=== PATIENT | male | born 1950 | race Caucasian/White ===

== ENCOUNTER 2021-08-22 12:00 | Inpatient (IN) | payer OTHER ==
[~2021-08-22] VITALS: Ht 188 cm; Wt 65.8 kg
[~2021-08-22 12:00] MED LIST: ALBUTEROL1.25 MG/3 INH; CEFUROXIME500 MG PO; CLARITIN 10MG T10 MG PO; DOXYCYCLINE HY100 M2 PO; DULERA 200 MCG8.8 GM INH; GLUCOPHAGE 500500 MG PO; GOLYTELY 40004000 ML PO; IPRAT-ALBUT 0.5-3 ML INH; MEDROL4 MG PO; OMNICEF 300 MG300 MG PO; SPIRIVA RESPIMAT4 GM INH; SYMBICORT 160-1 INHA INH; VENTOLIN HFA 66.7 GM INH
[2021-08-22 13:11] LABS: HEMOGLOBIN 14.8 gm/dl (14.0-17.5); RED BLOOD COUNT 4.53 M/UL (4.20-5.50)
[2021-08-22 13:27] LABS: BUN/CREATININE RATIO 21 (0-10)
[2021-08-22] MEDS ORDERED: SYMBICORT 80-10.2 GM INH (14:51)
[2021-08-23 05:29] LABS: HEMOGLOBIN 13.4 gm/dl (14.0-17.5); RED BLOOD COUNT 4.19 M/UL (4.20-5.50)
[2021-08-23 05:31] LABS: WHITE BLOOD COUNT 13.8 K/UL (4.5-11.0)
[2021-08-23 05:44] LABS: BUN/CREATININE RATIO 37 (0-10)
[2021-08-23] MEDS ORDERED: GLUCOPHAGE 500500 MG PO (10:47)
[2021-08-23] MEDS ORDERED: LEVOFLOXACIN500 MG PO (10:47)
[2021-08-23] MEDS ORDERED: MEDROL4 MG PO (10:47)
== END 2021-08-23 12:32 | disposition home or self-care (01) | DRG 871 ==
LOC: ER1 12:00 → CDU 13:36 → CCU 23:44
PROVIDERS: Emergency Medicine; ADMIT Internal Medicine
DX: A41.9 Sepsis, unspecified organism (principal); J18.9 Pneumonia, unspecified organism; J96.01 Acute respiratory failure with hypoxia; J44.0 Chronic obstructive pulmonary disease with (acute) lower respiratory infection; J44.1 Chronic obstructive pulmonary disease with (acute) exacerbation; Z20.822 Contact with and (suspected) exposure to COVID-19; R65.20 Severe sepsis without septic shock; I10 Essential (primary) hypertension; E11.9 Type 2 diabetes mellitus without complications; R53.81 Other malaise; Z79.899 Other long term (current) drug therapy; Z87.891 Personal history of nicotine dependence
CPT/HCPCS: 0240U; 36600; 71045; 71250; 80053; 82550; 82553; 82803; 82962; 83036; 83540; 83550; 83735; 83880; 85025; 85027; 85652; 86140; 87040; 93005; 94640; 94664; 94760; 96365; 96372; 96375; 99285; J0456; J0696; J1650; J2185; J2920; J7030

== ENCOUNTER 2021-11-24 04:58 | Inpatient (IN) | payer MEDICARE ==
[~2021-11-24] VITALS: Ht 188 cm; Wt 67.6 kg
[~2021-11-24 04:58] MED LIST changes: +LEVOFLOXACIN500 MG PO; +SYMBICORT 80-10.2 GM INH
[2021-11-24 05:19] LABS: HEMOGLOBIN 14.4 gm/dl (14.0-17.5); RED BLOOD COUNT 4.53 M/UL (4.20-5.50); WHITE BLOOD COUNT 16.4 K/UL (4.5-11.0)
[2021-11-24 05:48] LABS: BUN/CREATININE RATIO 20 (0-10)
[2021-11-24] MEDS ORDERED: METFORMIN HCL500 MG PO (10:14)
[2021-11-24] MEDS ORDERED: PROAIR HFA8.5 GM INH (10:15)
[2021-11-24] MEDS ORDERED: ASPIRIN EC81 MG PO (10:16)
[2021-11-24] MEDS ORDERED: LIPITOR20 MG PO (10:17)
[2021-11-24] MEDS ORDERED: LEXAPRO10 MG PO (10:17)
[2021-11-24] MEDS ORDERED: LOPRESSOR 25 MG25 MG PO (10:18)
[2021-11-24] MEDS ORDERED: TRELEGY ELLIPT1 EACH INH (10:19)
[2021-11-25 03:40] LABS: HEMOGLOBIN 13.1 gm/dl (14.0-17.5); RED BLOOD COUNT 4.19 M/UL (4.20-5.50)
[2021-11-25 03:48] LABS: WHITE BLOOD COUNT 8.7 K/UL (4.5-11.0)
[2021-11-25 04:09] LABS: BUN/CREATININE RATIO 31 (0-10)
[2021-11-25] MEDS ORDERED: CEFDINIR300 MG PO (12:33)
[2021-11-25] MEDS ORDERED: DOXYCYCLINE HY100 MG PO (12:33)
[2021-11-25] MEDS ORDERED: PREDNISONE20 MG PO (12:33)
== END 2021-11-25 13:37 | disposition home or self-care (01) | DRG 193 ==
LOC: ER1 04:58 → CDU 06:17 → PROG CARE 11:26
PROVIDERS: Emergency Medicine; Internal Medicine; ADMIT Internal Medicine
PROC: 5A09357 Assistance with Respiratory Ventilation, Less than 24 Consecutive Hours, Continuous Positive Airway Pressure (ICD-10-PCS; principal; 2021-11-24)
DX: J18.9 Pneumonia, unspecified organism (principal); J96.21 Acute and chronic respiratory failure with hypoxia; J96.22 Acute and chronic respiratory failure with hypercapnia; J44.0 Chronic obstructive pulmonary disease with (acute) lower respiratory infection; J44.1 Chronic obstructive pulmonary disease with (acute) exacerbation; I10 Essential (primary) hypertension; E11.9 Type 2 diabetes mellitus without complications; F17.210 Nicotine dependence, cigarettes, uncomplicated; Z20.822 Contact with and (suspected) exposure to COVID-19; Z99.81 Dependence on supplemental oxygen; Z79.82 Long term (current) use of aspirin; Z79.4 Long term (current) use of insulin; Z79.52 Long term (current) use of systemic steroids
CPT/HCPCS: 36415; 36600; 71045; 80048; 80053; 81001; 82550; 82553; 82803; 82962; 83036; 83605; 83735; 83880; 84100; 84484; 85025; 86140; 87040; 87086; 93005; 94640; 94660; 94664; 94760; 96372; 96374; 96375; 99285; J0456; J0696; J1650; J2920; J2930; J7030; U0002